=== PATIENT | female | born 1965 | race African-American/Black ===

== ENCOUNTER 2018-03-19 07:21 | Observation (INO) ==
--- NOTE | 2018-03-19 08:00 | ED ---
HPI General Chief Complaint: Chest Pain Stated Complaint: Chest Pains Time Seen by Provider: 03/19/18 07:56 Source: patient Mode of arrival: ambulatory Limitations: no limitations History of Present Illness HPI narrative: 52-year-old female patient with history of antiphospholipid antibiotics,CHF, hypertension, IVC filter, previous strokes, presents to the ER today because she states that she is having 3 days history of left-sided chest pains which she currently rates at a 8 out of 10, worse with deep breaths. She has been coughing, and has been given a Zithromax by her primary care doctor. She states she has been on it for 3 days it is not getting better. In addition , she had tried to take her Nitroglycerin 1 tablet per day for the last 3 days as well and that is not getting better. She denies any fevers, abdominal pains , or other symptoms. Complete Quality Measures for STEMI Alert Patients Related Data Home Medications Medication Instructions Recorded Confirmed Adult Low Dose Aspirin 81 mg PO DAILY 03/19/18 03/19/18 Keppra 500 mg PO BID 03/19/18 03/19/18 Lovenox 140 mg INJ DAILY 03/19/18 03/19/18 Prevacid 30 mg PO DAILY 03/19/18 03/19/18 Topamax 300 mg PO BID 03/19/18 03/19/18 Vitamin B-12 500 mcg PO DAILY 03/19/18 03/19/18 Vitamin B-6 50 mg PO DAILY 03/19/18 03/19/18 albuterol sulfate 90 mcg INHALATION QID 03/19/18 03/19/18 budesonide-formoterol 160 mcg INHALATION BID 03/19/18 03/19/18 calcium carbonate-vitamin D3 600 mg PO DAILY 03/19/18 03/19/18 ferrous sulfate 325 mg PO BID 03/19/18 03/19/18 folic acid 0.5 mg PO DAILY 03/19/18 03/19/18 losartan-hydrochlorothiazide 100 mg PO DAILY 03/19/18 03/19/18 magnesium oxide 500 mg PO DAILY 03/19/18 03/19/18 montelukast 10 mg PO DAILY 03/19/18 03/19/18 nitroglycerin 0.6 mg PO PRN 03/19/18 03/19/18 potassium chloride 10 meq PO DAILY 03/19/18 03/19/18 pravastatin 40 mg PO DAILY 03/19/18 03/19/18 Allergies Allergy/AdvReac Type Severity Reaction Status Date / Time amoxicillin Allergy Mild Hives Verified 03/19/18 07:37 iodine Allergy Mild Hives Verified 03/19/18 07:37 shellfish derived Allergy Mild Hives Verified 03/19/18 07:37 Review of Systems ROS: all other systems reviewed are negative PMFSH History History Provided By: Patient Medical History Medical History [place] filter in place (Acute) Antiphospholipid antibody syndrome (Acute) Asthma (Acute) CHF (congestive heart failure) (Acute) CVA (cerebral vascular accident) (Acute) Hypercholesteremia (Acute) Hypertension (Acute) Hyperthyroidism (Acute) Iron deficiency (Acute) Pulmonary emboli (Acute) Seizure (Acute) TIA (transient ischemic attack) (Acute) Social History Social History Substance History: No History of Abuse Second Hand Smoke Exposure: Yes Smoking Status: Never smoker How Often Do You Have a Drink Containing Alcohol: Never Recent Travel in [facility] within the Last 8 Weeks: Yes Recent Out of Country Travel within the Last 8 Weeks: No Exam Narrative Exam Narrative: GENERAL: Well-developed middle-age -[place] female patient currently and mild distress. Awake and oriented 3. SKIN: Focused skin assessment warm/dry. HEAD: Atraumatic. Normocephalic. EYES: Pupils equal and round. No scleral icterus. No injection or drainage. ENT: No nasal bleeding or discharge. Mucous membranes pink and moist. NECK: Trachea midline. No JVD. CARDIOVASCULAR: Regular rate and rhythm. No murmur appreciated.Pulses are present and equal bilaterally. RESPIRATORY: No accessory muscle use. Clear to auscultation. Breath sounds equal bilaterally. GASTROINTESTINAL: Abdomen soft, non-tender, nondistended. Hepatic and splenic margins not palpable. MUSCULOSKELETAL: No obvious deformities. No clubbing. No cyanosis. No edema. NEUROLOGICAL: Awake and alert. No obvious cranial nerve deficits. Motor grossly within normal limits. Normal speech. PSYCHIATRIC: Appropriate mood and affect; insight and judgment normal. Course Initial Documented Vital Signs Temperature 97.8 F 03/19/18 07:30 Pulse Rate 92 H 03/19/18 07:30 Respiratory Rate 18 03/19/18 07:30 Blood Pressure 177/97 H 03/19/18 07:30 Pulse Oximetry 100 03/19/18 07:30 Last Documented Vital Signs Temperature 97.8 F 03/19/18 07:30 Pulse Rate 75 03/19/18 09:40 Respiratory Rate 16 03/19/18 09:40 Blood Pressure 150/67 H 03/19/18 09:40 Pulse Oximetry 100 03/19/18 09:40 Medical Decision Making MDM Narrative Medical Screen Exam Complete: Yes Emergency Medical Condition: Yes Differential Diagnosis Differential Diagnosis: ACS versus bronchitis versus pneumonia versus pleurisy Lab Data Lab results reviewed: Yes I reviewed the patient's lab results. Result diagrams: 03/19/18 08:35 03/19/18 08:35 Lab Results 03/19/18 03/19/18 03/19/18 Range/Units 08:35 08:35 08:35 WBC 5.4 (4.0-11.0) th/mm3 RBC 4.15 (4.00-5.30) mil/mm3 Hgb 11.8 (11.6-15.3) gm/dL Hct 36.7 (35.0-46.0) % MCV 88.3 (80.0-100.0) fL MCH 28.3 (27.0-34.0) pg MCHC 32.1 (32.0-36.0) % RDW 14.6 (11.6-17.2) % Plt Count 308 (150-450) th/mm3 MPV 8.2 (7.0-11.0) fL Neut % (Auto) 50.5 (16.0-70.0) % Lymph % (Auto) 39.1 (9.0-44.0) % [place] % (Auto) 7.1 (0.0-8.0) % Eos % (Auto) 2.2 (0.0-4.0) % Baso % (Auto) 1.1 (0.0-2.0) % Neut # (Auto) 2.7 (1.8-7.7) th/mm3 Lymph # (Auto) 2.1 (1.0-4.8) th/mm3 [place] # (Auto) 0.4 (0.0-0.9) th/mm3 Eos # (Auto) 0.1 (0.0-0.4) th/mm3 Baso # (Auto) 0.1 (0.0-0.2) th/mm3 WBC Differential . Differential Comment Auto diff final D-Dimer Quant (PE/DVT) 0.29 (0.00-0.50) mg/L FEU Sodium 141 (136-145) meq/L Potassium 3.9 (3.5-5.1) meq/L Chloride 106 (98-107) meq/L Carbon Dioxide 27.9 (21.0-32.0) meq/L Anion Gap 7 (5-15) meq/L BUN 17 (7-18) mg/dL Creatinine 0.80 (0.50-1.00) mg/dL Estimated GFR 75 L (>89) mL/min Random Glucose 96 (74-106) mg/dL Calcium 9.1 (8.5-10.1) mg/dL Total Bilirubin 0.5 (0.2-1.0) mg/dL AST 34 (15-37) U/L ALT 25 (10-53) U/L Alkaline Phosphatase 73 (45-117) U/L Troponin I Less than 0.02 L (0.02-0.05) ng/mL Total Protein 8.1 (6.4-8.2) g/dL Albumin 4.0 (3.4-5.0) g/dL Imaging Data Attestation: I personally reviewed and interpreted this imaging study as follows : Radiologist's impression: Chest X-Ray 03/19/18 07:56 CONCLUSION: No evidence of acute cardiopulmonary process. ECG Data Attestation: I personally reviewed and interpreted this ECG as follows: Interpretation: EKG shows normal sinus rhythm at a rate of 80 bpm. No signs of acute ST elevations or depressions. Discharge Plan Discharge Disposition Patient Disposition: 30 Still Patient Discharge Condition Condition: Stable Discharge Details Anticipated Discharge Date: 03/19/18 Diagnosis: Atypical chest pain Physicians Team ED Provider: Rajiv Jackson Rxs /Orders / Referrals /Forms Prescriptions: No Action Adult Low Dose Aspirin 81 mg PO DAILY RF: 0 Keppra 500 mg PO BID RF: 0 Lovenox 140 mg INJ DAILY RF: 0 Prevacid 30 mg PO DAILY RF: 0 Topamax 300 mg PO BID RF: 0 Vitamin B-12 500 mcg PO DAILY RF: 0 Vitamin B-6 50 mg PO DAILY RF: 0 albuterol sulfate 90 mcg Inhalation QID RF: 0 budesonide-formoterol 160 mcg Inhalation BID RF: 0 calcium carbonate-vitamin D3 600 mg PO DAILY RF: 0 ferrous sulfate 325 mg PO BID RF: 0 folic acid 0.5 mg PO DAILY RF: 0 losartan-hydrochlorothiazide 100 mg PO DAILY RF: 0 magnesium oxide 500 mg PO DAILY RF: 0 montelukast 10 mg PO DAILY RF: 0 nitroglycerin 0.6 mg PO PRN RF: 0 potassium chloride 10 meq PO DAILY RF: 0 pravastatin 40 mg PO DAILY RF: 0 Discharge Instructions Patient Printed Instructions: Chest Pain (ED) Discharge Interventions Interventions: Vital Signs Last Done: 03/19/18 07:53 Status ED Status: With Doctor
[2018-03-19 08:50] LABS: Baso # (Auto) 0.1 th/mm3 (0.0-0.2); Baso % (Auto) 1.1 % (0.0-2.0); Eos # (Auto) 0.1 th/mm3 (0.0-0.4); Eos % (Auto) 2.2 % (0.0-4.0); Hematocrit 36.7 % (35.0-46.0); Hemoglobin 11.8 gm/dL (11.6-15.3); Lymph # (Auto) 2.1 th/mm3 (1.0-4.8); Lymph % (Auto) 39.1 % (9.0-44.0); Mean Corpuscular HGB Conc 32.1 % (32.0-36.0); Mean Corpuscular Hemoglobin 28.3 pg (27.0-34.0); Mean Corpuscular Volume 88.3 fL (80.0-100.0); Mean Platelet Volume 8.2 fL (7.0-11.0); Mono # (Auto) 0.4 th/mm3 (0.0-0.9); Mono % (Auto) 7.1 % (0.0-8.0); Neut # (Auto) 2.7 th/mm3 (1.8-7.7); Neut % (Auto) 50.5 % (16.0-70.0); Platelet Count 308 th/mm3 (150-450); Red Blood Count 4.15 mil/mm3 (4.00-5.30); Red Cell Distribution Width 14.6 % (11.6-17.2); White Blood Count 5.4 th/mm3 (4.0-11.0)
--- NOTE | 2018-03-19 08:50 | XR ---
EXAM DATE: 03/19/2018 8:36 AM EDT AGE/SEX: 52 years / Female INDICATIONS: Chest pains, wheezing, shortness of breath. CLINICAL DATA: This is the patient's initial encounter. Patient reports that signs and symptoms have been present for 1 day and indicates a pain score of 3/10. MEDICAL/SURGICAL HISTORY: Asthma. Cardiovascular disease. None. COMPARISON: No prior exams available for comparison. FINDINGS: A single AP view of the chest demonstrates the lungs to be symmetrically aerated without evidence of mass, infiltrate or effusion. The cardiomediastinal contours are unremarkable. Osseous structures a re intact. CONCLUSION: No evidence of acute cardiopulmonary process. Electronically signed by: Wagner Salguero MD 03/19/2018 8:49 AM EDT
[2018-03-19 09:13] LABS: Alanine Aminotransferase 25 U/L (10-53); Alkaline Phosphatase 73 U/L (45-117); Total Protein 8.1 g/dL (6.4-8.2)
[2018-03-19 09:17] LABS: Anion Gap 7 meq/L (5-15); Blood Urea Nitrogen 17 mg/dL (7-18); Calcium 9.1 mg/dL (8.5-10.1); Carbon Dioxide 27.9 meq/L (21.0-32.0); Chloride 106 meq/L (98-107); Glomerular Filtration Rate 75 mL/min (>89); Glucose,Random 96 mg/dL (74-106); Sodium 141 meq/L (136-145)
[2018-03-19 09:18] LABS: Aspartate Aminotransferase 34 U/L (15-37)
[2018-03-19 09:24] LABS: Potassium 3.9 meq/L (3.5-5.1)
[2018-03-19] MEDS ORDERED: Iohexol 350 MG/ML 100 ML Vial (for Cath Lab) IVCONTRAST ONE (09:47)
[2018-03-19] MEDS ORDERED: Regadenoson Inj 0.4 MG/5 ML Syringe IV.PUSH ONE (12:52)
--- NOTE | 2018-03-19 13:21 | P.HPCA ---
History of Present Illness Primary Care Physician: No Primary Care Physician Chief Complaint: Chest pain History of Present Illness: This is a 52-year-old female with history of antiphospholipid antibody, hypertension, hyperlipidemia, CVA 2, PE, and with IVC filter in place that presents to ED to be evaluated for chest discomfort. Patient states that she has had a nonproductive cough for several days. Was placed on an antibiotic Z- Juan 3 days ago. Still coughing but also still nonproductive. No fevers. States that she was awoken yesterday morning with a central chest pressure radiates to her left side that is been there constantly ever since. Intensity seems to wax and wane simply worse with a deep breath. Maybe a little short of breath. No nausea or diaphoresis. She is here visiting from [place]. 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 States she had a PET scan and has a record of it. She had a nonischemic PET myocardial perfusion scan 10/06/16. Patient is a non-smoker. States that her brother age 50 but really is not sure if he passed from cardiac issues. - Diagnosis (1) Atypical chest pain (2) Antiphospholipid antibody syndrome (3) Hypertension (4) Hyperlipidemia (5) History of CVA (cerebrovascular accident) (6) History of pulmonary embolus (PE) (7) Asthma (8) [place] filter in place Review of Systems General: Patient denies fevers, chills, and recent travel. HEENT: Patient denies headache, sore throat, difficulty swallowing. Cardiovascular: Has the chest discomfort as mentioned above. Denies sensation of heart beating rapidly or irregularly. No syncope. Denies diaphoresis Respiratory: She was short of breath. Also discomfort was worsened when she took in a deep breath. Denies coughing wheezing or hemoptysis. GI: Patient denies nausea, vomiting, diarrhea, abdominal pain, bloody stools. Musculoskeletal: Patient denies joint pain or edema. Denies calf pain or edema. Neurovascular: Patient denies numbness, tingling, weakness in extremities. Denies headache. Endocrine: Denies polyuria and polydipsia. Hematologic: Denies easy bruising. Skin: Denies rash or itching. PMFSH - History History Provided By: Patient - Medical History Medical History: Medical History (Last Updated 03/19/18 @ 09:25 by Aliza Dugan RN) Paulino filter in place (Acute) Antiphospholipid antibody syndrome Asthma CHF (congestive heart failure) CVA (cerebral vascular accident) Hypercholesteremia Hypertension Hyperthyroidism Iron deficiency Pulmonary emboli Seizure TIA (transient ischemic attack) - Tobacco History Second Hand Smoke Exposure: Yes Smoking Status: Never smoker - Alcohol History How Often Do You Have a Drink Containing Alcohol: Never - Substance Use History Substance History: No History of Abuse - Travel History Recent Travel in the [place] Within the Last 8 Weeks: Yes Recent Travel Out of the Country Within the Last 8 Weeks: No - Immunization History Tetanus Immunization: <5 Years Hx Influenza Vaccine This Season: Yes Medications and Allergies Active Medications: Active Medications Albuterol (Duoneb Neb (Prn)) 1 ampul NEB Q4HR NEB PRN PRN Reason: SHORTNESS OF BREATH/WHEEZING Ondansetron HCl (Zofran Inj) 4 mg IV.PUSH Q6H PRN PRN Reason: NAUSEA Sodium Chloride (Ns Flush) 2 ml IV.FLUSH UNSCH PRN PRN Reason: FLUSH AFTER USING IV ACCESS Sodium Chloride (Ns Flush) 2 ml IV.FLUSH BID ASHLIE Sodium Chloride (Ns Flush) 2 ml IV.FLUSH PRN PRN PRN Reason: FLUSH AFTER USING IV ACCESS Allergies Allergy/AdvReac Type Severity Reaction Status Date / Time amoxicillin Allergy Mild Hives Verified 03/19/18 07:37 iodine Allergy Mild Hives Verified 03/19/18 07:37 shellfish derived Allergy Mild Hives Verified 03/19/18 07:37 Home Medications Medication Instructions Recorded Confirmed Type Adult Low Dose Aspirin 81 mg PO DAILY 03/19/18 03/19/18 History Keppra 500 mg PO BID 03/19/18 03/19/18 History Lovenox 140 mg INJ DAILY 03/19/18 03/19/18 History Prevacid 30 mg PO DAILY 03/19/18 03/19/18 History Topamax 300 mg PO BID 03/19/18 03/19/18 History Vitamin B-12 500 mcg PO DAILY 03/19/18 03/19/18 History Vitamin B-6 50 mg PO DAILY 03/19/18 03/19/18 History albuterol sulfate 90 mcg INHALATION QID 03/19/18 03/19/18 History budesonide-formoterol 160 mcg INHALATION BID 03/19/18 03/19/18 History calcium carbonate-vitamin D3 600 mg PO DAILY 03/19/18 03/19/18 History ferrous sulfate 325 mg PO BID 03/19/18 03/19/18 History folic acid 0.5 mg PO DAILY 03/19/18 03/19/18 History losartan-hydrochlorothiazide 100 mg PO DAILY 03/19/18 03/19/18 History magnesium oxide 500 mg PO DAILY 03/19/18 03/19/18 History montelukast 10 mg PO DAILY 03/19/18 03/19/18 History nitroglycerin 0.6 mg PO PRN 03/19/18 03/19/18 History potassium chloride 10 meq PO DAILY 03/19/18 03/19/18 History pravastatin 40 mg PO DAILY 03/19/18 03/19/18 History Exam Vital signs: Vital Signs 03/19/18 07:30 03/19/18 07:53 03/19/18 09:40 Temperature 97.8 F Pulse Rate 92 H 88 75 Respiratory Rate 18 16 16 Blood Pressure 177/97 H 142/79 H 150/67 H Pulse Oximetry 100 100 100 03/19/18 12:13 Temperature Pulse Rate 88 Respiratory Rate 14 Blood Pressure 155/70 H Pulse Oximetry Intake & Output 03/18/18 03/19/18 03/19/18 18:59 06:59 18:59 Weight 89.811 kg Narrative: GENERAL: This is a well-nourished, well-developed patient, in no apparent distress. Patient speaks in clear complete sentences. Patient is pleasant. HEENT: Head is atraumatic and normocephalic. Neck is supple without lymphadenopathy and trachea is midline. No JVD or carotid bruits. CARDIOVASCULAR: Regular rate and rhythm without murmurs, gallops, or rubs. RESPIRATORY: Clear to auscultation. Breath sounds equal bilaterally. No wheezes , rales, or rhonchi. Chest wall is nontender. No use of accessory muscles. GASTROINTESTINAL: Abdomen is nontender, nondistended. Abdomen soft. No obvious pulsatile mass or bruit. No CVA tenderness. Strong femoral pulses bilaterally. Normal bowel sounds in all quadrants. MUSCULOSKELETAL: Patient is moving upper and lower extremities freely. No calf tenderness or edema, no Homans sign. Strong pulses in upper and lower extremities. NEUROLOGICAL: Patient is alert and oriented. Cranial nerves 2-12 are grossly intact. No focal deficits and speech is clear. SKIN: No rash and turgor is normal. Results 03/19/18 08:35 03/19/18 08:35 Cardiac Enzymes 03/19/18 Range/Units 08:35 AST 34 (15-37) U/L Troponin I Less than 0.02 L (0.02-0.05) ng/mL CBC 03/19/18 Range/Units 08:35 WBC 5.4 (4.0-11.0) th/mm3 RBC 4.15 (4.00-5.30) mil/mm3 Hgb 11.8 (11.6-15.3) gm/dL Hct 36.7 (35.0-46.0) % Plt Count 308 (150-450) th/mm3 Neut # (Auto) 2.7 (1.8-7.7) th/mm3 Lymph # (Auto) 2.1 (1.0-4.8) th/mm3 [place] # (Auto) 0.4 (0.0-0.9) th/mm3 Eos # (Auto) 0.1 (0.0-0.4) th/mm3 Baso # (Auto) 0.1 (0.0-0.2) th/mm3 Comprehensive Metabolic Panel 03/19/18 Range/Units 08:35 Sodium 141 (136-145) meq/L Potassium 3.9 (3.5-5.1) meq/L Chloride 106 (98-107) meq/L Carbon Dioxide 27.9 (21.0-32.0) meq/L BUN 17 (7-18) mg/dL Creatinine 0.80 (0.50-1.00) mg/dL Calcium 9.1 (8.5-10.1) mg/dL AST 34 (15-37) U/L ALT 25 (10-53) U/L Alkaline Phosphatase 73 (45-117) U/L Total Protein 8.1 (6.4-8.2) g/dL Albumin 4.0 (3.4-5.0) g/dL Intake and Output 03/18/18 03/19/18 03/19/18 22:59 06:59 14:59 Other: Weight 89.811 kg Patient Weight 03/20/18 06:59 Weight 89.811 kg EKG interpretations - EKG EKG shows: sinus rhythm (EKGs a sinus rhythm with nonspecific T-wave changes.) Caprini VTE Risk Assessment Caprini VTE Risk Assessment: Moderate/High Risk (score >= 2) Caprini Risk Assessment Model: Point Value = 1 Point Value = 2 Point Value = 3 Point Value = 5 Age 41-60 Minor surgery BMI > 25 kg/m2 Swollen legs Varicose veins or History of unexplained or recurrent spontaneous Oral contraceptives or hormone replacement Sepsis (< 1 month) Serious lung disease, including pneumonia (< 1 month) Abnormal pulmonary function Acute myocardial infarction Congestive heart failure (< 1 month) History of inflammatory bowel disease Medical patient at bed rest Age 61-74 Arthroscopic surgery Major open surgery (> 45 min) Laparoscopic surgery (> 45 min) Malignancy Confined to bed (> 72 hours) Immobilizing plaster cast Central venous access Age >= 75 History of VTE Family history of VTE Factor V Leiden Prothrombin 25108H Lupus anticoagulant Anticardiolipin antibodies Elevated serum homocysteine Heparin-induced thrombocytopenia Other congenital or acquired thrombophilia Stroke (< 1 month) Elective arthroplasty Hip, pelvis, or leg fracture Acute spinal cord injury (< 1 month) Prophylaxis Regimen: Total Risk Factor Score Risk Level Prophylaxis Regimen 0-1 Low Early ambulation 2 Moderate Order ONE of the following: *Sequential Compression Device (SCD) *Heparin 5000 units SQ BID 3-4 Higher Order ONE of the following medications: *Heparin 5000 units SQ TID *Enoxaparin/Lovenox 40 mg SQ daily (WT < 150 kg, CrCl > 30 mL/min) *Enoxaparin/Lovenox 30 mg SQ daily (WT < 150 kg, CrCl > 10-29 mL/min) *Enoxaparin/Lovenox 30 mg SQ BID (WT < 150 kg, CrCl > 30 mL/min) AND/OR *Sequential Compression Device (SCD) 5 or more Highest Order ONE of the following medications: *Heparin 5000 units SQ TID (Preferred with Epidurals) *Enoxaparin/Lovenox 40 mg SQ daily (WT < 150 kg, CrCl > 30 mL/min) *Enoxaparin/Lovenox 30 mg SQ daily (WT < 150 kg, CrCl > 10-29 mL/min) *Enoxaparin/Lovenox 30 mg SQ BID (WT < 150 kg, CrCl > 30 mL/min) AND *Sequential Compression Device (SCD) Assessment and Plan - Assessment (1) Atypical chest pain Code(s): R07.89 - Other chest pain Status: Acute (2) Antiphospholipid antibody syndrome Code(s): D68.61 - Antiphospholipid syndrome Status: Acute (3) Hypertension Code(s): I10 - Essential (primary) hypertension Status: Acute (4) Hyperlipidemia Code(s): E78.5 - Hyperlipidemia, unspecified Status: Acute (5) History of CVA (cerebrovascular accident) Code(s): Z86.73 - Personal history of transient ischemic attack (TIA), and cerebral infarction without residual deficits Status: Acute (6) History of pulmonary embolus (PE) Code(s): Z86.711 - Personal history of pulmonary embolism Status: Acute (7) Asthma Code(s): J45.909 - Unspecified asthma, uncomplicated Status: Acute (8) [place] filter in place Code(s): Z95.828 - Presence of other vascular implants and grafts Status: Acute - Plan * Atypical chest pain: Patient will have a Lexiscan. She will be seen by Dr. Carlos Eduardo Doe of cardiology in the [facility]. She will be discharged home if the stress test is nonischemic with instructions to follow-up with PCP. Return to ED for interval issues. * Hypertension: Continue medication. * Hyperlipidemia: Continue medication. * CVA: Continue medication. * History of PE: Patient has IVC filter. Continue medication. Continue follow- up with her physician. Patient is stable at this time. She is agreeable to this plan.
--- NOTE | 2018-03-19 13:57 | ECG ---
Date Performed: 03/19/2018 Time Performed: 07:50:15 PTAGE: 52 years EKG: Sinus rhythm NORMAL ECG NO PREVIOUS TRACING DOCTOR: Carlos Eduardo Doe Interpretating Date/Time 03/19/2018 13:55:09
--- NOTE | 2018-03-19 15:08 | NM ---
EXAM DATE: 03/19/2018 3:01 PM EDT AGE/SEX: 52 years / Female INDICATIONS:Angina. . Chest pain. CLINICAL DATA: This is the patient's initial encounter. Patient reports that signs and symptoms have been present for 1 day and indicates a pain score of 0/10. MEDICAL/SURGICAL HISTORY: Congestive heart failure. Hypertension. Asthma. IVC Filter placemen t. COMPARISON: No prior exams available for comparison. DOSE: 8.5 mCi Tc 99m Myoview at rest 25.4 mCi [id number] at stress 0.4 mg Lexiscan STRESS SYMPTOMS: Dyspnea, stomach pain, dizziness, right hand weakness and headache. EJECTION FRACTION: 64 % TECHNIQUE: The patient underwent pharmacologic stress with infusion of prescribed dose. Continuous ECG tracing was monitored during stress. Gated SPECT imaging was performed after stress and conventi onal SPECT imaging was performed at rest. The examination was performed on a SPECT/CT scanner, both attenuation and non-corrected datasets were reviewed. FINDINGS: The best perfused myocardium is the inferior wall. There is a large area redistribution involving anterior wall and the anterior lateral wall. There is mild hypokinesis of this segment. The ejection fraction is 64%. RISK CATEGORY: Moderate CONCLUSION: 1. Positive for a large area of stress-induced ischemia in the anterior lateral wall. Electronically signed by: Gunner Diehl MD 03/19/2018 3:07 PM EDT
[2018-03-19] MEDS: Aspirin 325 MG Tablet PO SCH (17:45)
[2018-03-19] MEDS ORDERED: Enoxaparin Inj 150 MG/ML Syringe SQ SCH (18:00)
[2018-03-19] MEDS: Topiramate 100 MG Tablet PO SCH (20:29)
[2018-03-19] MEDS: Ferrous Sulfate 325 MG Tablet PO SCH (20:30)
[2018-03-19] MEDS: levETIRAcetam 500 MG Tablet PO SCH (20:32)
[2018-03-19] MEDS: Budesonide-Formoterol 160/4.5 MCG 6 GM Inhaler INH SCH (22:16)
[2018-03-20] MEDS ORDERED: Metoprolol Tartrate 25 MG Tablet PO ONE (03:19)
[2018-03-20] MEDS ORDERED: Chlorhexidine Gluconate 2% 1 Pack (2 Cloths) TOPICAL ONE (03:19)
[2018-03-20] MEDS ORDERED: Sodium Chlor 0.9% Inj 500 ML IV.SIG SCH (04:00)
[2018-03-20] MEDS ORDERED: Famotidine PF Inj 20 MG/2 ML Vial IV.PUSH ONE (06:00)
[2018-03-20] MEDS ORDERED: MethylPREDNISolone Sod Succinate Inj 125 MG/2 ML Vial IV.PUSH ONE (06:00)
--- NOTE | 2018-03-20 07:33 | MB ---
cc: Samir Winters DO DATE: 03/20/2018 REASON FOR CONSULTATION: Chest pain, abnormal stress test. HISTORY OF PRESENT ILLNESS: Julia Wong is a pleasant 52-year-old female who presented to [facility] Emergency Room due to chest pain. She is down visiting her son for some time from [place]. She has noticed a nonproductive cough for a couple of days and was given a Z-Juan 3 days ago. She continues to cough, but has had no fevers. She awoke yesterday morning with central chest pain which radiated to her left side and has been there on and off ever since. She has also been somewhat short of breath with this. She denies nausea, vomiting, or diaphoresis. She previously had a nonischemic myocardial 2017. Because of her chest pain., she underwent a stress test which showed a large area of stress-induced ischemia of the anterolateral wall. Because of this, I was asked to see the patient. In seeing her, she is currently chest pain free. PAST MEDICAL HISTORY: 1. Antiphospholipid antibiotic syndrome. 2. Asthma. 3. History of unknown CHF (previous myocardial ejection fraction of 62%, so most likely diastolic in nature). 4. History of CVA. 5. Hyperlipidemia. 6. Hypertension. 7. Hyperthyroidism. 8. Iron deficiency anemia. 9. Pulmonary embolus x 2. 10. Seizure. 11. TIA. PAST SURGICAL HISTORY: Paulino filter placement. ALLERGIES: 1. AMOXICILLIN. 2. IODINE. 3. SHELLFISH. MEDICATIONS: 1. Topamax 300 mg b.i.d. 2. Prevacid 30 mg daily. 3. Aspirin 81 mg daily. 4. Pravastatin 40 mg daily. 5. Nitro sublingual as needed. 6. Potassium chloride 10 mEq daily. 7. Magnesium oxide 500 mg daily. 8. . 9. Losartan/hydrochlorothiazide 100 mg daily. 10. Keppra 500 mg b.i.d. 11. Budesonide/formoterol 160 mcg b.i.d. 12. Albuterol 90 mcg q.i.d. 13. Montelukast 10 mg daily. 14. Iron 325 mg b.i.d. FAMILY HISTORY: Denies premature coronary artery disease or sudden cardiac within the family. SOCIAL HISTORY: The patient denies tobacco, alcohol, or drug abuse. She does say she does have a history of secondhand smoke exposure. REVIEW OF SYSTEMS: Fourteen systems were reviewed including osteopathic. Pertinent positives and negatives above, otherwise negative. PHYSICAL EXAMINATION: VITAL SIGNS: Temperature 98.0, heart rate 76, blood pressure 139/80, respirations 16, pulse oximetry 99% on room air. GENERAL: The patient appears well, in no acute distress. Alert, awake, and oriented x3. HEENT: Extraocular muscles intact. Mucous membranes moist. NECK: Supple. No JVD at 45 degrees. No carotid bruits heard bilaterally. Carotid upstroke is brisk in nature. HEART: Regular rate and has a positive 1st and 2nd heart sounds without any murmurs, gallops, or rubs. LUNGS: Clear to auscultation bilaterally. No wheezes, rales, or rhonchi. ABDOMEN: Soft, nontender, nondistended. No organomegaly noted. EXTREMITIES: Show no clubbing, cyanosis, or edema. Femoral and distal pulses are intact bilaterally. NEUROLOGIC: No focal deficits. SKIN: Warm, dry, and intact. OSTEOPATHIC: No kyphoscoliosis, lordosis, or paraspinal tender points. DIAGNOSTIC DATA: Hemoglobin 11.8, hematocrit 36.7, platelets 308. Potassium 3.9, BUN 17, creatinine 0.82. Troponin less than 0.02. Electrocardiogram (03/19/2018 at 0750): Sinus rhythm. No acute ST-T wave changes. IMPRESSION: 1. Chest pain concerning for coronary insufficiency. 2. Abnormal nuclear stress test showing anterolateral ischemia (intermediate risk). 3. Antiphospholipid antibody syndrome. 4. Hypertension. 5. Hyperlipidemia. 6. History of cerebrovascular accident/transient ischemic attack. 7. History of pulmonary embolus. 8. Previous inferior vena cava filter placement. 9. Asthma. RECOMMENDATIONS: 1. Ms. Wong presented with chest pain and underwent stress testing which was abnormal as above. 2. She will be recommended cardiac catheterization. Risks, benefits, and alternatives have been explained to her. 3. We will hold her Lovenox dose as she has held this before for surgery without complications. 4. If intervention is necessary, we will most likely place her on Plavix, although I do not believe any data there is known on what she would need but most likely would be if intervention is necessary we will most likely place her on Plavix, although it is difficult knowing that she is on Lovenox and how to proceed with dual antiplatelet therapy. 5. We will treat her with medications preoperatively for her IODINE ALLERGY. 6. Further recommendations will be made after coronary visualization. Thank you for allowing me to see Julia Wong. If there are any questions, please do not hesitate to call. DO MARIPOSA Hernández/donna/serafin , 12:13 AM , 12:28 AM
[2018-03-20] MEDS ORDERED: Heparin/NS PF Inj 1,500 ML ONE (07:52)
[2018-03-20] MEDS ORDERED: Heparin 10,000 UNITS/10 ML Vial (for IV use) ONE (07:52)
[2018-03-20] MEDS: levETIRAcetam 500 MG Tablet PO SCH (08:08)
[2018-03-20] MEDS: Topiramate 100 MG Tablet PO SCH (08:08)
[2018-03-20] MEDS: Ferrous Sulfate 325 MG Tablet PO SCH (08:14)
[2018-03-20] MEDS: Budesonide-Formoterol 160/4.5 MCG 6 GM Inhaler INH SCH (08:15)
[2018-03-20] MEDS: Aspirin 325 MG Tablet PO SCH (08:15)
[2018-03-20] MEDS ORDERED: fentaNYL Citrate Inj 100 MCG/2 ML Ampul ONE (08:48)
[2018-03-20] MEDS ORDERED: Folic Acid 1 MG Tablet PO SCH (09:00)
[2018-03-20] MEDS ORDERED: Montelukast 10 MG Tablet PO SCH (09:00)
[2018-03-20] MEDS ORDERED: Magnesium Oxide 400 MG Tablet PO SCH (09:00)
--- NOTE | 2018-03-20 09:37 | CATHPROC ---
[employer] HIS Report Study Information Study Number Admission Scheduled Start Study Start [id number] Mar 19 2018 9:46AM 03/20/2018 Mar 20 2018 8:04AM [place] Service Cath Endovascular Study Admit Source Facility Department Emergency department [facility] - [facility] Physician and Clinical Staff Initial MD Winters, Samir Event Crew Technician Uri RN, Rajni Madsen,RT(R) Scrub Lucy Mata,ROHIT TECH2 Procedures Performed Procedure Location (Site) Vessel Name Coronary Angiograms LCA Left Coronary Coronary Angiograms RCA Right Coronary L Heart Cath Equipment Time Sail Repair Person Description Size Mfg Part Number Used/Scraped TRANSDUCER, TRUWAVE [id number] 08:41 DOSHI MALDONADO * Used W/STOCKCOCK *[id number] [id number] *[id number] *[id number] 08:41 [employer] BLANKET,WARM AIR CCL * Used *[id number] 08:41 [employer] PACK, CCL CUSTOM * Used *[id number] 08:41 [employer] SUPPORT, ARTERIAL ADULT [id number] *[id number] Used BAND, RADIAL COMPRESSION TR [id number] 09:26 [employer] MEDICAL 24CM Used SHORT 24 *[id number] 08:41 [employer] WIRE, EXCHANGE 260CM 3MMJ 260CM Used *[id number] 08:41 NAMIC MANIFOLD, 4 PORT * Used *[id number] 08:41 [employer] OMNIPAQUE, 350 MG, 150ML 150ML [id number] Used SHEATH, FR6 TRANSRADIAL [id number] 08:41 [employer] MEDICAL FR 6 Used SLENDER 10CM *[id number] History: Current Medications Medication Dosage/Unit Route Frequency Last Date/Time Taken ASA Beta Carli Statins (any) History: Allergies Allergy Reaction iodine Hives amoxicillin Hives shellfish derived Hives History: Risk Factors Family History of Hypertension Dyslipidemia Previous AL Previous Heart Failure Premature CAD Yes Yes No No No Prior Valve Prior PCI Prior CABG Surgery No No No Cerebrovascular Peripheral Artery Chronic Lung On Dialysis Diabetes Disease Disease Disease No Yes No Yes No History: Stress Tests Stress or Imaging Studies Performed Yes Standard Exercise Stress Test No Stress Echo No Stress Test SPECT Stress Test SPECT Result Stress Test SPECT Ischemia Risk/Extent Yes Positive Intermediate Stress Test CMR No Cardiac CTA Coronary Calcium Score No No History: Other Current Smoker No Labs Hgb (g/dl) Hct (%) WBC (l/cumm) Platelets (thousands) 11.60-17.00 35.00-51.00 4.00-11.00 150.00-450.00 11.8 36.7 5.4 308 Glucose (mg/dl) BUN (mg/dl) Creatinine (mg/dl) BUN:Creatinine (1:x) 74.00-106.00 7.00-18.00 0.50-1.30 10.00-20.00 96 17 0.8 21.3 Na (meq/l) K (meq/l) 136.00-145.00 3.50-5.10 141 3.9 Troponin I (ng/ml) CPK-MB (ng/ML) 0.02-0.05 0.50-3.60 0.02 Not Drawn Medication Medication Total Dose (Bolus/Oral) Medication Total Dosage/Unit 1% XYLOCAINE 5 mL FENTANYL 25 mcg RADIAL COCKTAIL 5 mL (Bolus) VERSED 0.5 mg Medications (Bolus/Oral) Medication Time Given Dosage/Unit Administered By Reason VERSED 03/20/2018 9:06:50 AM 0.5 mg Jhonatan Grewal RN 0.5 mg VERSED given in lab by Jhonatan Grewal RN in Right Antecubital via Peripheral IV. Ordered by Samir Ludwig FENTANYL 03/20/2018 9:07:08 AM 25 mcg Jhonatan Grewal RN 25 mcg FENTANYL given in lab by Jhonatan Grewal RN in Right Antecubital via Peripheral IV. Ordered by Samir Torres. 1% XYLOCAINE 03/20/2018 9:07:18 AM 5 mL Samir Winters 5 mL 1% XYLOCAINE given in lab by Samir Winters in Right Radial via Subcutaneous. RADIAL COCKTAIL 03/20/2018 9:12:54 AM 5 mL (Bolus) Samir Winters 5 mL (Bolus) RADIAL COCKTAIL given in lab by Samir Winters in Right Radial via Radial. Using [S olution Name]. Reason: Ntg 200mcg Verapamil 2.5mg Heparin 3300U. Medication (Drip) Medication Time Given Dosage/Unit Concentration/Unit Diluent (ml) Solution IV Solutions 03/20/2018 8:34:45 AM 50 mL (IV) NaCl .9 IV Solutions given in lab by Jhonatan Grewal RN in Right Antecubital via Peripheral IV. Pump/Drip Flow u sing NaCl .9. Initial Case Assessment Cardiovascular Edema Present Skin color Skin None Normal Warm Dry Circulatory - Right Pulses Dorsalis Pedis Femoral Radial 1 2 2 Scale (0,1,2,3,4,d) Circulatory - Left Pulses Dorsalis Pedis Femoral Radial 1 2 Scale (0,1,2,3,4,d) Neurological State Oriented to time-place- Alert Moves all extremities person Chronological Log Time Study Chronological Log 8:33:59 Patient arrived via Bed. 8:34:02 Patient Name, D.O.B, / Armband Verified By R.N. 8:34:04 Consent signed by the physician and the patient and verified by the [facility] staff. 8:34:24 Presedation assessment performed by [facility] RN. 8:34:25 Allens test performed on the right radial and ulnar artery. 8:34:34 Patient has been NPO for More than 6Hrs. 8:34:41 Skin Breakdown- none per pt 8:34:42 Patient Warmer Placed on the Table. 8:34:43 Farida Prominences Protected 8:34:44 A # 20 IV was noted in the Antecubital (right). Grade = 0 8:34:45 IV Solutions given in lab by Jhonatan Grewal RN in Right Antecubital via Peripheral IV. Pump/D rip Flow using NaCl .9. 8:34:46 History and physical on the chart or being dictated. Assessment: Initial Case, Edema=None, Color=Normal, Skin = Warm, Dry Right Pulses: David Ped=1, Femoral=2, Radial=2 8:34:46 Left Pulses: David Ped=1, Femoral=2 Neurological: State=Alert, Ox3, HERNANDEZ Vitals capture started with the following parameters, Patient=Adult, Interval=3 min, Initial Pr pcwrsk=207 mmHg, 8:42:29 Deflation Rate=5 mmHg, Cuff placed on Left Arm 8:43:06 QY=033 bpm, PKUB=745/99 mmhg, LfM3=577.0 %, Resp=8 B/min 8:46:10 HR=80 bpm, HISB=644/81 mmhg, SpO2=98.0 %, Resp=17 B/min, Pain=0, Praful=10, Chou=2 8:46:12 Reference ECG taken 8:49:10 HR=64 bpm, KETS=505/73 mmhg, SpO2=96.0 %, Resp=16 B/min 8:52:06 HR=72 bpm, XYTA=803/90 mmhg, AjL6=821.0 %, Resp=13 B/min 8:54:21 Right Radial and groin(s) prepped with 2% chlorhexidine, and draped after a 3 min. waiting time. 8:54:33 MD arrived. 8:55:11 HR=68 bpm, VYND=602/86 mmhg, HaX2=711.0 %, Resp=17 B/min 8:58:09 HR=69 bpm, SIJQ=784/82 mmhg, SpO2=99.0 %, Resp=16 B/min 8:59:54 Pressure channel 1 zeroed. 9:01:50 HR=71 bpm, UEOF=932/80 mmhg, VvC5=731.0 %, Resp=13 B/min 9:04:09 HR=72 bpm, ORCG=766/76 mmhg, SpO2=96.0 %, Resp=18 B/min Time Out. Correct patient, correct procedure, correct physician, labs, allergies, and equipment verified with liaison inspection laboratory assistant 9:05:32 team present. Fire risk assesment completed (see hard stop sheet for coding). Time Out Concu rred by MD and individual staff in procedure. 9:06:50 0.5 mg VERSED given in lab by Jhonatan Grewal RN in Right Antecubital via Peripheral IV. Ordere d by Samir Winters. 9:07:07 HR=86 bpm, QLRJ=835/91 mmhg, SpO2=99.0 %, Resp=14 B/min 25 mcg FENTANYL given in lab by Jhonatan Grewal RN in Right Antecubital via Peripheral IV. Ordered by Samir Winters 9:07:08 G. 9:07:17 Case Start 9:07:18 5 mL 1% XYLOCAINE given in lab by Samir Winters in Right Radial via Subcutaneous. 9:10:16 HR=70 bpm, NQZV=759/80 mmhg, SpO2=96.0 %, Resp=14 B/min 9:11:51 Access site was Right Radial Artery . A SHEATH, FR6 TRANSRADIAL SLENDER 10CM FR 6 was advanced into the Radial (right) using the Percu tanchris 9:12:04 technique. 5 mL (Bolus) RADIAL COCKTAIL given in lab by Samir Winters in Right Radial via Radial. Angella coley [Solution Name]. 9:12:54 Reason: Ntg 200mcg Verapamil 2.5mg Heparin 3300U. 9:13:08 HR=69 bpm, CTUW=209/83 mmhg, SpO2=96.0 %, Resp=14 B/min A JR 4.0 INFINITI CATHETER FR 5 was advanced over a wire. OMNIPAQUE, 350 MG, 150ML 150ML was use d for 9:14:07 injections. Recorded Pressure: LV, HR=78, Condition=Condition 1 9:15:56 (Left Ventricle) LV 133/2/5 Recorded Pressure: LV, Ao, HR=83, Condition=Condition 1 9:16:08 (Left Ventricle) LV 133/0/4, (Aorta) Ao 128/76/99 9:16:10 HR=81 bpm, MZUE=533/72 mmhg, SpO2=92.0 %, Resp=17 B/min Recorded Pressure: Ao, HR=78, Condition=Condition 1 9:16:22 (Aorta) Ao 123/72/94 9:17:19 The RCA was injected and visualized at various angles. OMNIPAQUE, 350 MG, 150ML 150ML used. After removing the current catheter a JL 3.5 INFINITI CATHETER FR 5 was advanced over a WIRE, EX CHANGE 260CM 9:18:42 3MMJ 260CM. 9:19:10 HR=71 bpm, QBUS=243/68 mmhg, SpO2=93.0 %, Resp=14 B/min 9:22:07 HR=70 bpm, VAKO=614/72 mmhg, SpO2=96.0 %, Resp=14 B/min 9:22:22 The LCA was injected and visualized at various angles. OMNIPAQUE, 350 MG, 150ML 150ML used. 9:25:09 HR=85 bpm, BCXR=612/77 mmhg, SpO2=94.0 %, Resp=14 B/min 9:25:18 Catheter was removed 9:26:50 Case End (Physician broke scrub) 9:28:11 HR=74 bpm, WKPS=497/71 mmhg, SpO2=96.0 %, Resp=18 B/min Radial Compression Device Used. ~VOLUME ML~ mLs of air placed in BAND, RADIAL COMPRESSION TR GARO RT 24 9:30:08 24CM. Affected hand ~O2 SATURATION~ % O2 saturation. 9:31:04 Vitals capture stopped. 9:32:22 No case complications noted. 9:32:23 Cine recording checked. 9:32:24 Holding Area notified. 9:32:31 A Left Heart Cath was performed. 9:37:32 Patient moved to stretcher End Study - Contrast Media Used In Study Contrast Total Opened (mL) Total Used (mL) Total Wasted (mL) Omnipaque 150 60 90 End Study - Maximum Contrast Load Max Contrast Load (mL) 561.4 End Study - Radiation Exposure Fluoro Time (minutes) 1.9 End Study - Patient Disposition Complications Transferred To Interventional Outcome No Telemetry Bed No attempt made
--- NOTE | 2018-03-20 11:00 | ECHRPT ---
Indication: CORONARY ATHEROSCLEROSIS CONCLUSIONS Normal left ventricular size. Wall thickness is normal. The left ventricular systolic function is normal with an estimated ejection fraction in the range of 55-60%. Trace mitral valve regurgitation. There is trace tricuspid valve regurgitation. The estimated pulmonary arterial pressure is 38 mmHg. BP: / HR: Rhythm: MEASUREMENTS (Male / Female) Normal Values Technical Quality: 2D ECHO LV Diastolic Diameter PLAX 4.6 cm 4.2 - 5.9 / 3.9 - 5.3 cm LV Systolic Diameter PLAX 3.4 cm IVS Diastolic Thickness 1.0 cm 0.6 - 1.0 / 0.6 - 0.9 cm LVPW Diastolic Thickness 0.8 cm 0.6 - 1.0 / 0.6 - 0.9 cm LV Relative Wall Thickness 0.4 RV Internal Dim ED PLAX 1.5 cm LA Systolic Diameter LX 3.4 cm 3.0 - 4.0 / 2.7 - 3.8 cm M-MODE Aortic Root Diameter MM 3.0 cm AV Cusp Separation MM 1.6 cm DOPPLER Mitral E Point Velocity 82.4 cm/s Mitral A Point Velocity 81.9 cm/s Mitral E to A Ratio 1.0 TR Peak Velocity 265.0 cm/s TR Peak Gradient 28.1 mmHg Right Atrial Pressure 10.0 mmHg Pulmonary Artery Systolic Pressu 38.1 mmHg Right Ventricular Systolic Press 38.1 mmHg FINDINGS LEFT VENTRICLE Normal left ventricular size. Wall thickness is normal. The left ventricular systolic function is normal with an estimated ejection fraction in the range of 55-60%. No regional wall motion abnormalities are present. RIGHT VENTRICLE Normal right ventricular size and systolic function. LEFT ATRIUM The left atrial size is normal. RIGHT ATRIUM The right atrial size is normal. ATRIAL SEPTUM Normal atrial septal thickness without atrial level shunting by limited color doppler interrogation. AORTA The aortic root and proximal ascending aorta are normal in size on limited imaging. MITRAL VALVE Trace mitral valve regurgitation. AORTIC VALVE Trileaflet aortic valve. No aortic valve stenosis or regurgitation. TRICUSPID VALVE There is trace tricuspid valve regurgitation. The estimated pulmonary arterial pressure is 38 mmHg. PULMONARY VALVE No pulmonary valve regurgitation or stenosis. VESSELS The inferior vena cava is normal in size. PERICARDIUM No pericardial effusion. Corona Strange (Electronically Signed) Final Date:20 March 2018 11:00
--- NOTE | 2018-03-20 12:53 | P.PN ---
Subjective Interval history: Nursing denies any deterioration since last night. Patient still having some chest pain post cath. Discussed with cardiology, no critical stenosis lesion warranting stenting. Patient says that she has been taking Lovenox for 15 years in the matter of 140 mg once a day per her top precipitator operator helper/oncologist in [place]. Says that her pain at this time feels different from the pain that she has had with her pulmonary emboli in the past. Physical Exam Vital signs: Vital Signs 03/19/18 14:51 03/19/18 15:47 03/19/18 17:25 Temperature 97.9 F 98.0 F Pulse Rate 79 76 66 Respiratory Rate 16 16 Blood Pressure 146/87 H 139/80 Pulse Oximetry 100 99 03/19/18 18:17 03/19/18 19:57 03/19/18 20:00 Temperature 98.1 F Pulse Rate 74 Respiratory Rate 16 Blood Pressure 156/85 H Pulse Oximetry 99 94 L 100 03/19/18 23:27 03/20/18 04:00 03/20/18 07:41 Temperature 98.1 F 98.1 F 98.0 F Pulse Rate 70 81 73 Respiratory Rate 16 16 16 Blood Pressure 133/77 144/76 H 131/68 Pulse Oximetry 100 100 100 03/20/18 09:46 Temperature Pulse Rate Respiratory Rate Blood Pressure Pulse Oximetry 100 Intake & Output 03/19/18 03/20/18 03/20/18 18:59 06:59 18:59 Weight 89.811 kg Other: # Voids 1 # Urine Diapers 4 Date of Last Bowel Movement 03/19/18 # Bowel Movements 1 Weight On Admission 89.811 kg Narrative: Has obvious sternal tenderness to palpation that tracks along the ribs underneath her left breast to which the patient all affirms is the same pain that she has had presented to the hospital Exam was performed in the presence of a female nurse. Results - Labs CBC & Chem 7: 03/19/18 08:35 03/19/18 08:35 - Imaging Impressions Myocardial Perfusion Scan Nuc Med 03/19/18 11:37 CONCLUSION: 1. Positive for a large area of stress-induced ischemia in the anterior lateral wall. Assessment and Plan - Plan Chest pain Clinically appears to be very costochondritic. Applying Lidoderm patch Status post cardiac catheterization not demonstrating any acute coronary syndrome. Echocardiogram findings are unremarkable. Patient has met maximal benefit from hospitalization and is clinically stable for discharge.
[2018-03-20] MEDS ORDERED: Lidocaine 5% Patch T-DERMAL SCH (13:30)
--- NOTE | 2018-03-20 16:39 | P.PNCA ---
Subjective Interval history: No events overnight Cath today showing no significant disease, but did have myocardial bridging of the LAD Physical Exam Vital signs: Vital Signs 03/19/18 17:25 03/19/18 18:17 03/19/18 19:57 Temperature Pulse Rate 66 Respiratory Rate Blood Pressure Pulse Oximetry 99 94 L 03/19/18 20:00 03/19/18 23:27 03/20/18 04:00 Temperature 98.1 F 98.1 F 98.1 F Pulse Rate 74 70 81 Respiratory Rate 16 16 16 Blood Pressure 156/85 H 133/77 144/76 H Pulse Oximetry 100 100 100 03/20/18 07:41 03/20/18 09:46 Temperature 98.0 F Pulse Rate 73 Respiratory Rate 16 Blood Pressure 131/68 Pulse Oximetry 100 100 Intake & Output 03/19/18 03/20/18 03/20/18 18:59 06:59 18:59 Weight 89.811 kg Other: # Voids 1 # Urine Diapers 4 Date of Last Bowel Movement 03/19/18 # Bowel Movements 1 Weight On Admission 89.811 kg Narrative: GENERAL: NAD, AAOx3 SKIN: Warm and dry. HEAD: Atraumatic. Normocephalic. EYES: Pupils equal and round. No scleral icterus. No injection or drainage. ENT: No nasal bleeding or discharge. Mucous membranes pink and moist. NECK: Trachea midline. No JVD. CARDIOVASCULAR: Regular rate and rhythm. RESPIRATORY: No accessory muscle use. Clear to auscultation. Breath sounds equal bilaterally. GASTROINTESTINAL: Abdomen soft, non-tender, nondistended. Hepatic and splenic margins not palpable. MUSCULOSKELETAL: Extremities without clubbing, cyanosis, or edema. No obvious deformities. NEUROLOGICAL: Awake and alert. No obvious cranial nerve deficits. Motor grossly within normal limits. Five out of 5 muscle strength in the arms and legs. Normal speech. PSYCHIATRIC: Appropriate mood and affect; insight and judgment normal. Assessment and Plan - Plan 1) Atypical chest pain Cath negative for significant CAD Does have mild myocardial bridging of the LAD Recommended HR/BP control 2) EF 55-60% by echo 3) History of Anti-phospholipid syndrome/PE/CVA Lovenox per her Film Numberer 4) Coreg added for HR/BP control 5) Cardiovascularly stable for discharge Will follow up with her well puller in [place] when possible Will request records for her well puller when back in [place]
--- NOTE | 2018-03-21 08:02 | MA ---
cc: Samir Winters DO DATE: 03/20/2018 PROCEDURE PERFORMED: Left heart catheterization, coronary angiogram, moderate sedation of 20 minutes. PREPROCEDURE DIAGNOSES: Chest pain, abnormal stress test. 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 MEDICATIONS: Versed 0.5 mg, fentanyl 25 mcg, nitro 200 mcg, verapamil 2.5 mg, heparin 3300 units. CONTRAST USED: 60 mL. PROCEDURAL SUMMARY: Julia Wong is a pleasant 52-year-old female. She underwent stress testing, which showed a large area of ischemia, which was written as a low risk, but should at least be an intermediate risk stress test. Because of this, she was recommended cardiac catheterization. Risks, benefits and alternatives were explained to her and she consented as such. She was pretreated with Solu-Medrol, Pepcid and Benadryl for her CONTRAST ALLERGY. She was brought to the lab and prepped in the usual sterile fashion. The right radial artery was accessed using modified Seldinger technique and placement of a 5/6 [place] slender sheath. This was easily aspirated and flushed. A JR4 was advanced to the ascending aorta and across the aortic valve for measurement of left ventricular pressure. This was pulled back across the aortic valve showing no significant gradient of aortic stenosis. JR4 was used for selective angiography of the right coronary artery system. JL3.5 was used for selective angiography of the left coronary system. JL3.5 was removed over a J-wire. Radial band was placed over the arteriotomy site for hemostasis. FINDINGS: LEFT MAIN: Normal-sized vessel with adequate reflux. It bifurcates into an LAD and circumflex. LAD: Normal-sized vessel with mild luminal irregularity throughout the proximal portion. Mid portion of the LAD shows myocardial bridging. Distally no significant disease. LAD overall is a type 3, which supplies a significant portion of the inferior wall. It also gives off 1 diagonal with no significant disease. LEFT CIRCUMFLEX: Moderate-sized vessel, which is most likely codominant in nature. There is no significant disease. It gives off 3 obtuse marginals with no significant disease, although there is mild tortuosity consistent with elevated hypertension for some time. RCA: Small, probably codominant vessel, which has a high RV branch and then a small PDA. No significant disease. LVEDP 4. IMPRESSION: 1. Abnormal stress test. 2. Mild coronary artery disease. 3. 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 RECOMMENDATIONS: 1. Ms. Wong appears to have myocardial bridging of her LAD with no other significant disease. 2. She will be treated medically for this. 3. We will plan on adding carvedilol for both heart rate and blood pressure control. Overall, she needs long-term blood pressure control to help with her myocardial bridging. 4. A 2-D echo to look at her overall left ventricular function, cardiac structure. 5. If no complications with her echo, she may be discharged home for followup with her roll tube setter in the near future. Thank you for allowing me to see Julia Wong. If there are any questions, please do not hesitate to call. DO MARIPOSA Hernández/gutierrez , 11:07 PM , 11:11 PM SUSY
--- NOTE | 2018-03-21 14:42 | TR ---
Date Performed: 03/19/2018 Time Performed: 13:17:46 DOCTOR: Carlos Eduardo Doe DRUG LIST: CLINICAL HISTORY: CHEST PAIN REASON FOR TEST: CHEST PAIN REASON FOR ENDING: OBSERVATION: CONCLUSION: COMMENTS: Lexiscan stress test was performed under standard four minute protocol. Radionuclide was injected one minute prior to ending the test. No electrocardiographic abormalities were present t o suggest ischemia. Nuclear imaging and interpretation are pending.
== END 2018-03-20 16:30 | disposition home or self-care (01) ==
LOC: NEPC 07:21 → NEDA 07:21 → NEPFCDU 14:51 → HCIS 03-20 10:31 → N04 03-20 13:02
PROVIDERS: ADMIT Hospitalist; ATTEND Hospitalist